=== PATIENT | female | born 1930 | race African-American/Black ===

== ENCOUNTER 2019-01-31 14:11 | Inpatient (IN) | payer MEDICARE ==
[~2019-01-31] VITALS: Ht 165.1 cm; Wt 61.7 kg
[2019-01-31 15:43] LABS: BASOPHILS % 1.1 % (0.0-2.0); EOSINOPHILS % 1.4 % (0.0-5.0); HEMATOCRIT. 38.6 % (36.0-48.0); HEMOGLOBIN. 13.1 g/dL (12.0-16.0); LYMPHOCYTES % 33.6 % (20.0-50.0); MEAN CORPUSCULAR HEMOGLOBIN 32.7 pg (28.0-32.0); MEAN CORPUSCULAR VOLUME 96.2 fL (81.0-99.0); MEAN PLATELET VOLUME 8.6 fl (7.4-10.4); NEUTROPHILS % 55.9 % (40.0-76.0); PLATELET 214 x1000/uL (130-400); RED BLOOD CELL COUNT 4.01 mill/uL (4.2-5.4); RED CELL DISTRIBUTION WIDTH 15.8 % (11.6-14.6)
[2019-01-31 15:46] LABS: PROTHROMBIN TIME 10.7 sec (9.6-11.0)
[2019-01-31 15:47] LABS: CHLORIDE 108 mEq/L (98-107)
[2019-01-31 15:51] LABS: CLARITY URINE CLEAR (CLEAR); COLOR URINE YELLOW (YELLOW); KETONES URINE NEGATIVE (NEGATIVE); LEUKOCYTE ESTERASE URINE TRACE (NEGATIVE); NITRITE URINE NEGATIVE (NEGATIVE); OCCULT BLOOD URINE NEGATIVE (NEGATIVE); PH URINE 7.5 (4.5-8.0); PROTEIN URINE NEGATIVE (NEGATIVE); SPECIFIC GRAVITY URINE 1.011 (1.005-1.030); UROBILINOGEN URINE 0.2 E.U./dL (0.2-1.0)
[2019-01-31 15:52] LABS: ETHANOL BLOOD < 10 mg/dL
[2019-01-31 16:20] LABS: *AMPHETAMINES SCREEN URINE NEGATIVE (NEGATIVE); *BARBITURATES SCREEN URINE NEGATIVE (NEGATIVE); *BENZODIAZEPINES SCREEN URINE NEGATIVE (NEGATIVE); *COCAINE SCREEN URINE NEGATIVE (NEGATIVE); METHADONE URINE SCREEN NEGATIVE (NEGATIVE); OPIATES URINE SCREEN PRESUMTIVE POSITIVE (NEGATIVE)
[2019-01-31 16:21] LABS: CANNABINOID URINE SCREEN NEGATIVE (NEGATIVE); PHENCYCLIDINE URINE SCREEN NEGATIVE (NEGATIVE)
[2019-01-31] MEDS ORDERED: ACETAMINOPHEN 500MG TABLET PO ONE (16:30)
[2019-01-31] MEDS ORDERED: LORAZEPAM 2MG/ML CPJ IV PRN (19:30)
[2019-01-31] MEDS ORDERED: CLONIDINE 0.1MG TABLET PO PRN (19:30)
[2019-01-31] MEDS ORDERED: DOCUSATE SODIUM 100MG CAPSULE PO PRN (19:30)
[2019-01-31] MEDS ORDERED: ENOXAPARIN 40MG/0.4ML SYR SUBCUT SCH (19:30)
[2019-01-31] MEDS ORDERED: ACETAMINOPHEN 325MG TABLET PO PRN (19:30)
[2019-01-31] MEDS ORDERED: ONDANSETRON HCL 4MG/2ML INJ IV PRN (19:30)
[2019-01-31 20:00] VITALS: BP_SYST 156; BP_SYST 174; BP_DIAS 55; BP_DIAS 68
[2019-01-31] MEDS: AMLODIPINE 10MG TABLET PO SCH (20:36)
[2019-01-31] MEDS: METOPROLOL TARTRATE 25MG TABLET PO SCH (20:36)
[2019-01-31 20:42] VITALS: BP 174/68
[2019-01-31] MEDS: ENOXAPARIN 30MG/0.3ML SYR SUBCUT SCH (22:25)
[2019-01-31] MEDS: CEFTRIAXONE 1 G PREMIX 50 ML IV SCH (22:25)
[2019-02-01] VITALS: BP 156/55
[2019-02-01] MEDS ORDERED: ZOLPIDEM TARTRATE 5MG TABLET PO PRN (01:30)
[2019-02-01] MEDS: TRAMADOL 50MG TABLET PO PRN ×2 (01:38→22:31)
[2019-02-01 04:00] VITALS: BP 133/58
[2019-02-01 07:43] LABS: CHLORIDE 108 mEq/L (98-107)
[2019-02-01 07:47] LABS: BASOPHILS % 0.7 % (0.0-2.0); EOSINOPHILS % 1.7 % (0.0-5.0); HEMATOCRIT. 38.6 % (36.0-48.0); HEMOGLOBIN. 12.8 g/dL (12.0-16.0); LYMPHOCYTES % 38.4 % (20.0-50.0); MEAN CORPUSCULAR HEMOGLOBIN 32.2 pg (28.0-32.0); MEAN PLATELET VOLUME 8.5 fl (7.4-10.4); MONOCYTES % 10.8 % (2.0-8.0); NEUTROPHILS % 48.4 % (40.0-76.0); PLATELET 194 x1000/uL (130-400); RED BLOOD CELL COUNT 3.97 mill/uL (4.2-5.4); RED CELL DISTRIBUTION WIDTH 15.6 % (11.6-14.6)
[2019-02-01 07:52] LABS: HDL CHOLESTEROL 62 mg/dL (40-59); LDL CHOLESTEROL 71 mg/dL (5-100)
[2019-02-01 08:00] VITALS: BP 145/65
[2019-02-01] MEDS ORDERED: ASPIRIN 81MG EC TABLET PO SCH (09:00)
[2019-02-01] MEDS: METOPROLOL TARTRATE 25MG TABLET PO SCH ×2 (09:43→21:10)
[2019-02-01] MEDS: AMLODIPINE 10MG TABLET PO SCH (09:44)
[2019-02-01 12:00] VITALS: BP 129/57
[2019-02-01 16:00] VITALS: BP 162/74
[2019-02-01 20:00] VITALS: BP 140/66
[2019-02-01] MEDS: ENOXAPARIN 30MG/0.3ML SYR SUBCUT SCH (21:11)
[2019-02-01] MEDS: CEFTRIAXONE 1 G PREMIX 50 ML IV SCH (22:22)
[2019-02-02] VITALS: BP 135/55
[2019-02-02 04:00] VITALS: BP 149/56
[2019-02-02] MEDS: AMLODIPINE 10MG TABLET PO SCH (09:27)
[2019-02-02] MEDS: METOPROLOL TARTRATE 25MG TABLET PO SCH (09:27)
[2019-02-02 12:00] VITALS: BP 159/58
[2019-02-02 13:28] VITALS: BP 159/58
== END 2019-02-02 16:35 | disposition hospice, home (50) | DRG 69 ==
LOC: ER 14:57 → 8WST 17:19 → EDBEDREQ 17:23 → EDBEDREQTM 17:23 → ENRESERV 17:26
PROVIDERS: ADMIT Hospitalist; ATTEND Hospitalist
DX: G45.9 Transient cerebral ischemic attack, unspecified (principal); G93.40 Encephalopathy, unspecified; N39.0 Urinary tract infection, site not specified; R47.01 Aphasia; I16.0 Hypertensive urgency; H54.8 Legal blindness, as defined in USA; Z51.5 Encounter for palliative care; Z66 Do not resuscitate; I25.10 Atherosclerotic heart disease of native coronary artery without angina pectoris; E11.9 Type 2 diabetes mellitus without complications; I10 Essential (primary) hypertension; I25.2 Old myocardial infarction; Z86.73 Personal history of transient ischemic attack (TIA), and cerebral infarction without residual deficits
CPT/HCPCS: 36415; 70551; 71045; 80061; 80305; 80320; 81003; 82140; 82962; 83605; 83880; 84484; 93005; 93970; 97162; 99285; J0696; J1650; J7040; G0480